=== PATIENT | female | born 1970 | race Two or more races ===

== ENCOUNTER 2024-05-03 14:30 | Emergency (ER) | payer SELFPAY ==
[~2024-05-03] VITALS: Ht 152.4 cm; Wt 55.0 kg
[2024-05-03 15:34] VITALS: BP 142/96; PULSE 99; RESP 16; O2SAT 98
[2024-05-03] MEDS ORDERED: KETOROLAC TROMETH 30 MG/ML 1ML VIAL IM ONE (16:15)
== END 2024-05-03 20:58 | disposition left against medical advice (07) ==
LOC: ER 14:30
DX: M54.50 Low back pain, unspecified (principal); W01.0XXA Fall on same level from slipping, tripping and stumbling without subsequent striking against object, initial encounter; Y93.89 Activity, other specified; Y92.89 Other specified places as the place of occurrence of the external cause; Y99.8 Other external cause status